=== PATIENT | male | born 1945 | race Caucasian/White ===

== ENCOUNTER 2016-07-08 16:00 | Outpatient (CLI) | payer MEDICARE, OTHER ==
[2016-07-08 16:15] VITALS: BP 126/53
[2016-07-08] MEDS ORDERED: NS FLUSH 10 ML PRN IV (16:15)
[2016-07-08] MEDS ORDERED: SODIUM CHLORIDE 50 ML IV PRN (16:15)
[2016-07-08] MEDS ORDERED: NS FLUSH 3 ML PRN IV (16:15)
[2016-07-08] MEDS: MAGNESIUM 1 GM/100 ML IVPB 100 ML IV SCH ×2 (16:22→17:23)
--- NOTE | 2016-07-08 16:26 | NUR ---
@ 1605- patient arrives to room 318 for outpt magnesium infusion. @1615- 20g IV started to [facility] without difficulty. @1625- Magnesium infusion bag 1 of 2 started at this time.
[2016-07-08 16:27] VITALS: BP 126/53
[2016-07-08 16:29] VITALS: BP 126/53
--- NOTE | 2016-07-08 17:23 | NUR ---
Magnesium bag 2 of 2 infusing now. Offered patient a supper meal tray but he declines, has plans to take his mother to dinner after his infusion is complete. Tolerating infusion without difficulty.
--- NOTE | 2016-07-08 18:29 | NUR ---
Magnesium infusion complete at this time.
[2016-07-08 18:30] VITALS: BP 128/56
--- NOTE | 2016-07-08 18:31 | NUR ---
VSS at end of infusion. Pt dismissed to home- IV dc'd at this time. Tip intact, site without redness/swelling. This nurse accompanied patient to doors via ambulation
== END 2016-07-08 18:35 | disposition home or self-care (01) ==
LOC: EUOP 16:00 → MED/SURG 16:02 → EUOP 18:35
PROVIDERS: ATTEND Family Medicine
DX: E83.42 Hypomagnesemia (principal)
CPT/HCPCS: 96365; 96366; J3475